=== PATIENT | female | born 1995 | race Caucasian/White ===

== ENCOUNTER 2019-10-02 13:53 | Emergency (ER) | payer OTHER ==
[~2019-10-02] VITALS: Ht 165.1 cm; Wt 55.8 kg
[2019-10-02] MEDS ORDERED: BIRTH CONTROLL (14:11)
[2019-10-02] MEDS ORDERED: FLEXERIL PO (14:35)
[2019-10-02 14:47] VITALS: BP 118/77
== END 2019-10-02 14:49 | disposition home or self-care (01) ==
LOC: M.ERS 13:53
DX: S16.1XXA Strain of muscle, fascia and tendon at neck level, initial encounter (principal); S70.311A Abrasion, right thigh, initial encounter; Z88.6 Allergy status to analgesic agent; V89.2XXA Person injured in unspecified motor-vehicle accident, traffic, initial encounter; Y93.89 Activity, other specified; Y92.89 Other specified places as the place of occurrence of the external cause; Y99.8 Other external cause status